=== PATIENT | male | born 2000 | race Caucasian/White ===

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

== ENCOUNTER → 2020-01-24 | Outpatient (CLI) | payer OTHER, SELFPAY ==
[~2020-01-24] MED LIST: KEFL500C17 PO
--- NOTE | 2020-01-24 12:38 | REP ---
Clinical: Right foot pain Technique: AP, lateral, bilateral oblique views right foot . Findings: The osseous structures and joint spaces are intact and normal. There is no evidence for acute fracture or dislocation. Surrounding soft tissues are unremarkable. No subcutaneous emphysema or radiodense foreign body. Impression: Normal right foot series . No acute fracture or dislocation. Electronically Signed by Harsh Jacob MD 01/24/2020 12:29 P
--- NOTE | 2020-01-24 12:38 | REP ---
Clinical: Right ankle pain . Technique: AP, lateral, bilateral oblique views right ankle . Findings: No acute fracture or dislocation. Skeletal structures and joint spaces are intact and normal. Ankle mortise appears stable. No subcutaneous emphysema or radiodense foreign body. Impression: Normal age-appropriate right ankle radiograph series. Electronically Signed by Harsh Jacob MD 01/24/2020 12:29 P
== END ==
LOC: M ADAMS 11:48
PROVIDERS: ATTEND Physician Assistant
DX: M25.571 Pain in right ankle and joints of right foot (principal); M25.572 Pain in left ankle and joints of left foot

== ENCOUNTER 2024-09-27 18:02 | Emergency (ER) | payer OTHER, SELFPAY ==
[~2024-09-27] VITALS: Ht 182.9 cm; Wt 72.6 kg
[2024-09-27 20:49] VITALS: BP 135/78; TEMP 98.6; O2SAT 98
== END 2024-09-27 20:55 | disposition home or self-care (01) ==
LOC: M ED 18:02
DX: F43.0 Acute stress reaction (principal)

== ENCOUNTER 2025-01-18 06:44 | Emergency (ER) | payer OTHER ==
[~2025-01-18] VITALS: Ht 182.9 cm; Wt 61.6 kg
[2025-01-18 08:22] LABS: ALT/SGPT 19 U/L (7.0-40); AST/SGOT 32 U/L (<34); CALCIUM LEVEL 9.1 MG/DL (8.5-10.1); CARBON DIOXIDE LEVEL 24 MMOL/L (20-31); CHLORIDE LEVEL 106 MMOL/L (98-107); CREATININE FOR GFR 0.95 MG/DL (0.70-1.30); GLOMERULAR FILTRATION RATE > 90.0 (>60); POTASSIUM SERUM 5.2 MMOL/L (3.5-5.1); SODIUM LEVEL 143 MMOL/L (136-145)
[2025-01-18 08:23] LABS: BASO # 0.1 10^3/uL (0.0-0.2); BASO % 0.8 % (0.0-1.0); EOS # 0.1 10^3/uL (0.0-0.5); EOS % 0.6 % (0.0-3.0); LYMPH # 1.1 10^3/uL (1.5-5.0); LYMPH % 11.7 % (24.0-44.0); MONO # 0.5 10^3/uL (0.0-0.8); MONO % 5.1 % (2.0-8.0); NEUTROPHILS # 7.9 10^3/uL (1.5-8.5); NEUTROPHILS % 81.3 % (36.0-66.0); PLATELET COUNT, AUTOMATED 265 10^3/uL (150-450)
[2025-01-18] MEDS ORDERED: ISOVUE-370 76% 100 ML VIAL As Ordered ONE (09:29)
[2025-01-18 10:00] VITALS: BP 128/63; O2SAT 99
[2025-01-18] MEDS ORDERED: ONDA-282 PO (10:05)
[2025-01-18 10:09] VITALS: TEMP 97.5
== END 2025-01-18 10:19 | disposition home or self-care (01) ==
LOC: M ED 06:44 → EDBD 06:44 → M ED 10:19
DX: K29.00 Acute gastritis without bleeding (principal); F17.290 Nicotine dependence, other tobacco product, uncomplicated; Z79.899 Other long term (current) drug therapy
CPT/HCPCS: 36415; 74177; 80048; 80076; 83690; 85025; 99284; Q9967